=== PATIENT | female | born 1975 | race Caucasian/White ===

== ENCOUNTER 2016-11-26 21:43 | Emergency (ER) | payer OTHER ==
--- NOTE | 2016-11-26 23:47 | DIAGNOSTIC IMAGING REPORT ---
PROCEDURE: US COMPLETE PELVIC W/TRANSVAG INDICATION: ABNORMAL BLEEDING TECHNIQUE: Transabdominal and endovaginal gomez scale and color Doppler sonographic images of the female pelvis were obtained. COMPARISON: None. FINDINGS: TRANSABDOMINAL SCANS: The uterus is of normal size (8.4 x 4.5 x 6.2 cm). Kidneys are normal. TRANSVAGINAL SCANS: Endometrial thickness is normal for premenopausal patient (10 mm). Ovaries are normal (right 2.8 cm, left 2.7 cm). IMPRESSION: 1. Normal pelvic ultrasound.
--- NOTE | 2016-11-27 01:53 | ED ORDER SUMMARY ---
..... Patient: THOMAS PICHARDO OrderSheet [facility] VisitID: [id number] [place] [address] 41y, F Registration Date/Time: 11/26/2016 ORDER SHEET Weight: 78.4 kg (stated) Allergies: No Known Drug Allergy GENERAL ORDERS: US Pelvic Complete w Transvag Urgent (22:12 11/26/2016 HBivens A.R.N.P.) (Ack 22:15 LTapper) (23:49 [facility]) CBC w Diff Urgent (22:12 11/26/2016 HBivens A.R.N.P.) (Ack 22:15 LTapper) (1:29 [facility]) CMP Urgent (22:12 11/26/2016 HBivens A.R.N.P.) (Ack 22:15 LTapper) (1:29 [facility]) Serum Qualitative Urgent (22:12 11/26/2016 HBivens A.R.N.P.) (Ack 22:15 LTapper) (1:29 [facility]) MEDICATION ORDERS: IV FLUIDS: ORDER SHEET NOTES: [Electronically signed by Cynthia Carlton R.N. (04:15 11/27/2016)] [Electronically signed by Max Lua MD (21:48 11/28/2016)] [Electronically locked/signed by Cynthia Carlton R.N. (04:15 11/27/2016)]
--- NOTE | 2016-11-27 01:53 | ED ORDER SUMMARY ---
..... Patient: THOMAS PICHARDO OrderSheet [facility] VisitID: [id number] [place] [address] 41y, F Registration Date/Time: 11/26/2016 ORDER SHEET Weight: 78.4 kg (stated) Allergies: No Known Drug Allergy GENERAL ORDERS: US Pelvic Complete w Transvag Urgent (22:12 11/26/2016 HBivens A.R.N.P.) (Ack 22:15 LTapper) (23:49 [facility]) CBC w Diff Urgent (22:12 11/26/2016 HBivens A.R.N.P.) (Ack 22:15 LTapper) (1:29 [facility]) CMP Urgent (22:12 11/26/2016 HBivens A.R.N.P.) (Ack 22:15 LTapper) (1:29 [facility]) Serum Qualitative Urgent (22:12 11/26/2016 HBivens A.R.N.P.) (Ack 22:15 LTapper) (1:29 [facility] Operator) MEDICATION ORDERS: IV FLUIDS: ORDER SHEET NOTES: [Electronically signed by Cynthia Carlton R.N. (04:15 11/27/2016)] [Electronically signed by Max Lua MD (21:48 11/28/2016)] [Electronically locked/signed by Cynthia Carlton R.N. (04:15 11/27/2016)]
--- NOTE | 2016-11-27 01:53 | ED NURSING NOTES ---
Clinical Report - Nurses [facility] [address] [place] [address] 11/26/2016 21:45 [id number] Triage time 22:Nov 26 2016. Acuity: LEVEL 3. Chief Complaint: VAGINAL BLEED. --22: Alicia Selene RAlexNAlex 22:02 11/26/16. BP: 154/88. HR: 78. RR: 17. O2 saturation: 96%. Temp: 98.1 F. Pain level now: 03/30. --22: Alicia SeleneOlga. Weight: 78.4 kg stated. Height/Length: 61 inches Per Patient. BMI: 32.7. --22: Alicia SeleneOlga. Medications Levothyroxine Sodium Oral 150 mcg, daily. --22: Alicia SeleneOlga. Allergies No Known Drug Allergy. --22: Alicia SeleneOlga. History Arrived by private vehicle. Historian: patient. Accompanied by family. This is a new problem and onset was abrupt. (2 days). PAST MEDICAL HX: Immunizations: up-to-date. SOCIAL HX: Current every day heavy tobacco smoker (cigarette)- less than 1 pack per day. Occasional alcohol use. History of occasional drug use: marijuana. ABUSE ASSESSMENT: No report of abuse. --22: Selene Vargas RAlexN. ADDITIONAL SURGERIES: no known surgeries. Interventions ID band on patient. To treatment room. --22: Selene Vargas R.N. PHYSICAL ASSESSMENT Ambulatory to room. GENERAL / NEURO / PSYCH: Alert. Oriented X 4. Appears in pain. HEENT: Mucous membranes are pink. RESPIRATORY: Respirations not labored. Breath sounds within normal limits. CVS: Normal heart rate and rhythm. Capillary refill less than 2 seconds. GI / : Profuse vaginal bleeding present, consisting of bright red blood with clots. Greater than 4 pads per hour. ( Patient states she has gone through 36 Regular in less than 2 days). SKIN: Skin is warm and dry. --22:08 Selene Vargas R.N. NURSING PROGRESS NOTES Pulse oximeter and NIBP monitor placed on patient; monitor alarms on. Patient gowned. Head of bed elevated. Two patient identifiers checked. Call light placed in reach. Side rails up x 1. Bed placed in lowest position. Brakes of bed on. Patient ready for evaluation- chart flagged. --22:09 Selene Vargas R.N. Care transferred and report received (from Selene RN). --23:27 Cynthia Carlton R.N. 23:20 pm. Care transferred and report given (Cynthia LOJA). --23:29 Selene Vargas R.N. pt waiting for ultrasound results. --00:47 Cynthia Carlton R.N. 00:42 11/27/16. BP: 110/83. HR: 68. RR: 18 (unlabored). O2 saturation: 98% on room air. Pain level now: 01/28. --00:47 Cynthia Carlton R.N. 01:29 late entry -. Patient ID band checked for patient name and birthdate: patient confirmed. Blood samples drawn from the right antecubital space with syringe and 21g butterfly by tech per protocol ; labeled in presence of the patient and sent to lab: danyell hsieh. --01:46 Kameron Davis ER Coverstitch Elastic Attacher. DISPOSITION / DISCHARGE discharge done by PURVI Beaver. Departure time: 0200. Condition at departure: unchanged. No learning barriers present. Discharge instructions provided and reviewed with the patient. Reviewed medication(s). Prescription(s) given to the patient (Ovcon). Patient verbalized understanding. Written instructions provided in Portuguese. The patient was discharged by the physician. She was discharged home and accompanied by spouse. She left the Emergency Department ambulatory and via private vehicle. Spouse driving. Medication list reviewed and validated with the patient. --04:15 Cynthia Carlton R.N. 02:00 11/27/16. BP: deferred. HR: deferred. RR: deferred. O2 saturation: deferred. Temp: deferred. Pain level now deferred. --04:15 Cynthia Carlton R.N. Locked/Released at 11/27/2016 4:15 by Cynthia Carlton R.N.
--- NOTE | 2016-11-27 01:53 | ED CLINICAL REPORT ---
Clinical Report - Physicians/Mid Levels [facility] [address] [place] [address] 11/26/2016 21:45 Patient: THOMAS PICHARDO Time Seen: 21:57; upon arrival, initial patient contact, initial documentation, patient care assumed. Arrived- By private vehicle. Historian- patient and spouse. CPT: ER phys charges level 4 (#[id number]). HISTORY OF PRESENT ILLNESS Chief Complaint: VAGINAL BLEEDING. This started about 2 days ago and still present. Modifying factors. Not worsened by anything. Not relieved by anything. The patient has had mild, constant, crampy pelvic pain, described as "pain", with vaginal bleeding. She has had abnormal bleeding described as heavier than normal period. No abdominal pain, vaginal pain, low back pain, flank pain or irregular periods. No vaginal discharge, pain with urination, urinary frequency, urgency of urination or hematuria. Sexually active- unprotected sex and heterosexual. No exposure to sexually transmitted disease. (period always comes on around the beginning of the month, regular, but never bleeds this bad, blood is pouring out). Similar symptoms previously: None. Recent medical care: Not recently seen/assessed. REVIEW OF SYSTEMS No vomiting, diarrhea, fever, difficulty breathing or chest pain. All systems otherwise negative, except as recorded above. PAST HISTORY Negative. SOCIAL HISTORY Light tobacco smoker. Occasional alcohol use. History of occasional drug use: marijuana. No recent travel. Is a local resident. She lives with spouse. FAMILY HISTORY Negative. ADDITIONAL NOTES The nursing notes have been reviewed with agreement regarding the chief complaint, HPI, ROS, PMH and patient medications and allergies. PHYSICAL EXAM Vital Signs: 11/26/2016 22:02 BP: 154/88. HR: 78. RR: 17. O2 saturation: 96%. Temp: 98.1 F. Pain level now: 5/10. Have been reviewed as normal and appear to be correct. Appearance: Alert. Oriented X3. No acute distress. HEENT: Normal external inspection. ENT: Pharynx normal. Neck: Neck supple. CVS: Heart sounds normal. Respiratory: No respiratory distress. Breath sounds normal. Chest nontender. Abdomen: Soft and nontender. Bowel sounds normal. No organomegaly. No mass. Back: Normal external inspection. : (pelvic exam deferred due to excessive bleeding, agreed to us). Skin: Skin warm and dry. Normal skin color. No rash. Normal skin turgor. Extremities: Extremities nontender. No lower extremity edema. Neuro: Oriented X 3. Mood/affect normal. No motor deficit. No sensory deficit. LABS, X-RAYS, AND EKG Pelvic Sonogram: Adnexa normal. No free fluid. No intrauterine . No utrerine mass or abnormality. Study type: transvaginal evaluation. The study was independently viewed by me and interpreted contemporaneously by me. Laboratory Tests: Serum Qualitative: (HAILEY: 11/27/2016 01:30) ( [facility] [place] 01:43) Final results Test Result Flag Units (Reference) , SERUM NEGATIVE CBC w Diff: (HAILEY: 11/27/2016 01:30) ( MsgRcvd 11/27/2016 01:36) Final results Test Result Flag Units (Reference) WHITE BLOOD COUNT 10.4 K/uL (4.5-11.5) RED BLOOD COUNT 4.60 M/uL (4.00-5.20) HEMOGLOBIN 12.9 gm/dL (12.0-16.0) HEMATOCRIT 39.5 % (36.0-46.0) MEAN CELL VOLUME 86 fL (80-100) MEAN CORPUSCULAR HGB 28 pg (26-34) MEAN CORPUSCULAR HGB CONC 33 g/dL (31-37) RED CELL DISTRIBUTION WIDTH 13.8 % (11.6-14.8) PLATELET COUNT 279 K/uL (150-400) NEUTROPHIL % 68.3 % (50-75) LYMPH % 23.8 L % (25-40) MONO % 6.1 % (3-14) EOSINOPHIL % 1.4 % (0-4) BASOPHIL % 0.4 % (0-2) CMP: (HAILEY: 11/27/2016 01:30) ( MsgRcvd 11/27/2016 01:49) Final results Test Result Flag Units (Reference) GLUCOSE 99 mg/dL (70-110) BUN 22 H mg/dL (7-18) CREATININE 1.0 mg/dL (0.6-1.3) Estimated GFR >60 mL/min Estimated GFR- >60 mL/min Note: Persistent reduction over 3 months in eGFR<60 mL/min/1.73 m2 defines CKD. Patients with eGFR values>=60 mL/min/1.73 m2 may also have CKD if evidence ofpersistent proteinuria. Additional information may be foundat www.kidney.org. SODIUM 134 L mmol/L (136-145) POTASSIUM 4.0 mmol/L (3.5-5.1) CHLORIDE 103 mmol/L (98-107) CARBON DIOXIDE 29 mmol/L (21-32) CALCIUM 8.6 mg/dL (8.5-10.1) TOTAL PROTEIN 7.2 g/dL (6.4-8.2) ALBUMIN 3.8 g/dL (3.3-5.0) BILIRUBIN, TOTAL 0.2 mg/dL (0.0-1.0) ALKALINE PHOSPHATASE 66 U/L (46-116) AST (SGOT) 17 U/L (15-37) ALT (SGPT) 25 U/L (12-78) . PROGRESS AND PROCEDURES Course of Care: 23:10 11/26/16. reported off to Dr Lua who is assuming care Bleeding slowed significantly since laying supine. VSS and HCt normal. Patient/family counseled. Differential Diagnosis: I considered vaginitis, vaginal polyps, vaginal lesion, vaginal cancer, vulvar infection, ovarian cysts, polycystic disease of the ovaries, pelvic inflammatory disease, endometriosis, uterine fibroids, adenomyosis of the uterus, intrauterine , incomplete , threatened , endometritis, atrophic vaginitis and dysfunctional uterine bleeding as a possible cause of vaginal bleeding in this patient. This is a partial list of diagnoses considered. Above considerations are based on history, physical exam, laboratory data and other information. Differential diagnosis was discussed with patient. Disposition: Condition: good and stable. CLINICAL IMPRESSION Moderate dysfunctional uterine bleeding. No menorrhagia or metrorrhagia. INSTRUCTIONS No strenuous activity. Rest. Bed rest until better. Do not work for three days until better. Warnings: Further evaluation is necessary. GENERAL WARNINGS: Return or contact your physician immediately if your condition worsens or changes unexpectedly, if not improving as expected, or if other problems arise. Specifically return if problem worsens. Prescription Medications: Ovcon 35 take 2 per day for the next 5 days . Follow-up: Follow up with your doctor in about three days even if well. Call for an appointment. Summary of care provided to patient. Understanding of the discharge instructions verbalized by patient. (Electronically signed by Max Lua MD 11/28/2016 21:48)
--- NOTE | 2016-11-28 21:49 | ED DISCHARGE INSTRUCTIONS ---
Patient: THOMAS PICHARDO General Instructions [facility] VisitID: [id number] [place] [address] 41y, F Registration Date/Time: 11/26/2016 Moderate dysfunctional uterine bleeding. No menorrhagia or metrorrhagia. INSTRUCTIONS No strenuous activity. Rest. Bed rest until better. Do not work for three days until better. Warnings: Further evaluation is necessary. GENERAL WARNINGS: Return or contact your physician immediately if your condition worsens or changes unexpectedly, if not improving as expected, or if other problems arise. Specifically return if problem worsens. Prescription Medications: Ovcon 35 take 2 per day for the next 5 days . Follow-up: Follow up with your doctor in about three days even if well. Call for an appointment. Summary of care provided to patient. Understanding of the discharge instructions verbalized by patient. ADDITIONAL INFORMATION Irregular Vaginal Bleeding This is a condition in which bleeding occurs at unexpected times of the month. The bleeding may be heavier or barrel lapper than usual. Heavy bleeding may lead to anemia. If severe enough, anemia may cause you to look pale and feel weak or fatigued. You might have shortness of breath even with little exertion. The female hormones produced in your body every month may be out of balance. This imbalance leads to bleeding. Causes could include an ovarian cyst, emotional stress, pelvic infection. Failure to ovulate during your last cycle may also cause this problem. Home Care: If bleeding is heavy, rest and avoid heavy exertion. You may use acetaminophen (Tylenol) or ibuprofen (Motrin, Advil) to control pain, unless another pain medicine was prescribed. [NOTE: If you have chronic liver or kidney disease or ever had a stomach ulcer or GI bleeding, talk with your doctor before using these medicines.] Iron supplements may be prescribed for anemia. It takes about 4-6 weeks for the iron to correct the anemia. Take the medicine as directed. See your doctor for a repeat blood test after you finish the iron treatment. If hormones were prescribed to control your bleeding, take them exactly as directed. If you were prescribed a medicine called Provera (medroxyprogesterone), the bleeding should stop while you are taking it. Another period will start a few days after you finish the medicine. Follow Up with your doctor, or as advised, within the next 1-2 days if heavy bleeding continues. Otherwise, follow up within the next 1-2 weeks. Get Prompt Medical Attention if any of the following occur: Bleeding becomes heavy (soaking one pad an hour for three hours) Fever of 100.4F (38C) or higher, or as directed by your healthcare provider Increase in abdominal pain Weakness, dizziness or fainting You have been given the following additional information: Dysfunctional Uterine Bleeding No strenuous activity. Rest. Bed rest until better. Do not work for three days until better. (Electronically signed by Max Lua MD 11/28/2016 21:48)
--- NOTE | 2016-11-28 21:49 | ED MAR SUMMARY ---
..... Medication Administration Record [facility] [address] [place], [place] [id number] Patient: THOMAS PICHARDO Sha[place] Visit ID: [id number] 41y, F Weight: 78.4 kg Height/Length: 61 in BMI: 32.7 ALLERGIES: No Known Drug Allergy
--- NOTE | 2016-11-28 21:49 | ED MED RECONCILIATION SUMMARY ---
Patient: THOMAS PICHARDO Medication Reconciliation Report [facility] VisitID: [id number] [address] [place] [address] 41y, F Registration Date/Time: 11/26/2016 Weight: 78.4 kg Height/Length: 61 in. BMI: 32.7 ALLERGIES: No Known Drug Allergy The patient's Home Medications are listed below: THE FOLLOWING MEDICATIONS NEED TO BE RECONCILED: Levothyroxine Sodium Oral 150 mcg, daily The source(s) of the original Home Medication information: Not obtained. The following Medications were given to the patient in the Emergency Department: None. The following Medications were prescribed to the patient: Ovcon 35 take 2 per day for the next 5 days . -- Max Lua MD
--- NOTE | 2016-11-28 21:49 | ED MED RECONCILIATION SUMMARY ---
Patient: THOMAS PICHARDO Medication Reconciliation Report [facility] VisitID: [id number] [address] [place] [address] 41y, F Registration Date/Time: 11/26/2016 Weight: 78.4 kg Height/Length: 61 in. BMI: 32.7 ALLERGIES: No Known Drug Allergy The patient's Home Medications are listed below: THE FOLLOWING MEDICATIONS NEED TO BE RECONCILED: Levothyroxine Sodium Oral 150 mcg, daily The source(s) of the original Home Medication information: Not obtained. The following Medications were given to the patient in the Emergency Department: None. The following Medications were prescribed to the patient: Ovcon 35 take 2 per day for the next 5 days . -- Max Lua MD
--- NOTE | 2016-11-28 21:49 | ED DISCHARGE INSTRUCTIONS ---
Patient: THOMAS PICHARDO General Instructions [facility] VisitID: [id number] [place] [address] 41y, F Registration Date/Time: 11/26/2016 Moderate dysfunctional uterine bleeding. No menorrhagia or metrorrhagia. INSTRUCTIONS No strenuous activity. Rest. Bed rest until better. Do not work for three days until better. Warnings: Further evaluation is necessary. GENERAL WARNINGS: Return or contact your physician immediately if your condition worsens or changes unexpectedly, if not improving as expected, or if other problems arise. Specifically return if problem worsens. Prescription Medications: Ovcon 35 take 2 per day for the next 5 days . Follow-up: Follow up with your doctor in about three days even if well. Call for an appointment. Summary of care provided to patient. Understanding of the discharge instructions verbalized by patient. ADDITIONAL INFORMATION Irregular Vaginal Bleeding This is a condition in which bleeding occurs at unexpected times of the month. The bleeding may be heavier or race and sports book writer than usual. Heavy bleeding may lead to anemia. If severe enough, anemia may cause you to look pale and feel weak or fatigued. You might have shortness of breath even with little exertion. The female hormones produced in your body every month may be out of balance. This imbalance leads to bleeding. Causes could include an ovarian cyst, emotional stress, pelvic infection. Failure to ovulate during your last cycle may also cause this problem. Home Care: If bleeding is heavy, rest and avoid heavy exertion. You may use acetaminophen (Tylenol) or ibuprofen (Motrin, Advil) to control pain, unless another pain medicine was prescribed. [NOTE: If you have chronic liver or kidney disease or ever had a stomach ulcer or GI bleeding, talk with your doctor before using these medicines.] Iron supplements may be prescribed for anemia. It takes about 4-6 weeks for the iron to correct the anemia. Take the medicine as directed. See your doctor for a repeat blood test after you finish the iron treatment. If hormones were prescribed to control your bleeding, take them exactly as directed. If you were prescribed a medicine called Provera (medroxyprogesterone), the bleeding should stop while you are taking it. Another period will start a few days after you finish the medicine. Follow Up with your doctor, or as advised, within the next 1-2 days if heavy bleeding continues. Otherwise, follow up within the next 1-2 weeks. Get Prompt Medical Attention if any of the following occur: Bleeding becomes heavy (soaking one pad an hour for three hours) Fever of 100.4F (38C) or higher, or as directed by your healthcare provider Increase in abdominal pain Weakness, dizziness or fainting You have been given the following additional information: Dysfunctional Uterine Bleeding No strenuous activity. Rest. Bed rest until better. Do not work for three days until better. (Electronically signed by Max Lua MD 11/28/2016 21:48)
--- NOTE | 2016-11-28 21:49 | ED MAR SUMMARY ---
..... Medication Administration Record [facility] [address] [place], [place] [id number] Patient: THOMAS PICHARDO [place] Visit ID: [id number] 41y, F Weight: 78.4 kg Height/Length: 61 in BMI: 32.7 ALLERGIES: No Known Drug Allergy
== END 2016-11-27 02:00 | disposition home or self-care (01) ==
LOC: ED SRH 21:43
DX: N93.8 Other specified abnormal uterine and vaginal bleeding (principal); F17.200 Nicotine dependence, unspecified, uncomplicated; Z79.899 Other long term (current) drug therapy
CPT/HCPCS: 90100; 95059; 98428